=== PATIENT | male | born 1995 | race Caucasian/White ===

== ENCOUNTER 2020-05-20 09:44 | Emergency (ER) | payer OTHER ==
[~2020-05-20] VITALS: Ht 182.9 cm; Wt 76.1 kg
[2020-05-20] MEDS ORDERED: MOTRIN (09:52)
--- NOTE | 2020-05-20 10:28 | REPVR ---
PROCEDURE INFORMATION: Exam: XR Right Hand Exam date and time: 05/20/20 (10:14am) Age: 24 years old Clinical indication: Right hand swelling. Sutures in hand. TECHNIQUE: Imaging protocol: XR Right hand Views: 3 or more views COMPARISON: No relevant prior studies available FINDINGS: Bones/joints: Unremarkable. No acute fracture nor dislocation. Soft tissues: Unremarkable. IMPRESSION: No acute findings. Electronically signed by: Jessica Benavides On 05/20/2020 10:28:21 AM
[2020-05-20] MEDS ORDERED: cefTRIAXone SOD 2 GM in D5W MINI-BAG PLUS 50 ML IV ONE (11:45)
[2020-05-20 12:10] LABS: BASO % 0.2 % (0.0-1.0); EOS # 0.1 10^3/uL (0.0-0.5); EOS % 0.6 % (0.0-3.0); HEMOGLOBIN 16.2 g/dl (13.5-17.5); MEAN CORPUSCULAR HEMOGLOBIN 30.6 pg (27.0-33.0); MEAN CORPUSCULAR HGB CONC 33.8 g/dl (32.0-36.5); MEAN CORPUSCULAR VOLUME 90.7 fl (80.0-96.0); MONO # 0.9 10^3/uL (0.0-0.8); MONO % 7.1 % (0.0-5.0); NEUTROPHILS # 10.7 10^3/uL (1.5-8.5); NEUTROPHILS % 83.7 % (36.0-66.0); PLATELET COUNT, AUTOMATED 287 10^3/uL (150-450); RED BLOOD COUNT 5.29 10^6/uL (4.30-6.10); WHITE BLOOD COUNT 12.8 10^3/uL (4.0-10.0)
[2020-05-20 12:29] LABS: ERYTHROCYTE SEDIMENTATION RATE 2 mm/hr (0-15)
[2020-05-20] MEDS ORDERED: KEFL500C17 PO (13:25)
[2020-05-20 13:37] VITALS: BP 133/65
== END 2020-05-20 13:41 | disposition home or self-care (01) ==
LOC: M ED 09:44
DX: L03.113 Cellulitis of right upper limb (principal); F17.200 Nicotine dependence, unspecified, uncomplicated
CPT/HCPCS: 73130; 80047; 85025; 85652; 86140; 87040; 96365; 99284; J0696

== ENCOUNTER 2021-05-09 11:47 | Emergency (ER) | payer OTHER ==
[~2021-05-09] VITALS: Ht 177.8 cm; Wt 76.2 kg
[~2021-05-09 11:47] MED LIST: KEFL500C17 PO; MOTRIN
[2021-05-09 11:48] VITALS: BP 128/61
[2021-05-09] MEDS ORDERED: LIDOCAINE 1% MDV 20ML VIAL SC ONE (12:40)
== END 2021-05-09 13:51 | disposition home or self-care (01) ==
LOC: M ED 11:47
DX: S63.257A Unspecified dislocation of left little finger, initial encounter (principal); W21.01XA Struck by football, initial encounter; Y92.410 Unspecified street and highway as the place of occurrence of the external cause; Y93.62 Activity, american flag or touch football; Y99.9 Unspecified external cause status

== ENCOUNTER 2022-03-28 17:29 | Emergency (ER) | payer OTHER ==
[~2022-03-28] VITALS: Ht 185.4 cm; Wt 74.5 kg
[2022-03-28 19:51] VITALS: BP 148/79
== END 2022-03-28 19:55 | disposition home or self-care (01) ==
LOC: M ED 17:29
DX: J06.9 Acute upper respiratory infection, unspecified (principal); Z87.891 Personal history of nicotine dependence

== ENCOUNTER 2023-01-24 23:14 | Emergency (ER) | payer OTHER ==
[~2023-01-24] VITALS: Ht 177.8 cm; Wt 82.3 kg
[2023-01-25] MEDS ORDERED: KETOROLAC 60MG 2ML VIAL IM ONE (05:25)
[2023-01-25] MEDS ORDERED: predniSONE 20 MG TAB PO ONE (05:25)
[2023-01-25 07:38] VITALS: BP 123/61
[2023-01-25] MEDS ORDERED: NAPR-837 PO (07:48)
[2023-01-25] MEDS ORDERED: MEDR4PAK PO (07:48)
== END 2023-01-25 08:02 | disposition home or self-care (01) ==
LOC: M ED 23:14
DX: M54.50 Low back pain, unspecified (principal); Y93.B3 Activity, free weights; Y99.1 Military activity; Z79.1 Long term (current) use of non-steroidal anti-inflammatories (NSAID); Z79.899 Other long term (current) drug therapy
CPT/HCPCS: 72110; 72190; 96372; 99283; J1885; J7512

== ENCOUNTER 2023-09-25 23:23 | Emergency (ER) | payer OTHER ==
[~2023-09-25] VITALS: Ht 180.3 cm; Wt 82.5 kg
[~2023-09-25 23:23] MED LIST changes: +MEDR4PAK PO; +NAPR-837 PO
[2023-09-26 00:18] LABS: BASO % 0.2 % (0.0-1.0); EOS # 0.2 10^3/uL (0.0-0.5); EOS % 1.7 % (0.0-3.0); HEMATOCRIT 42.2 % (42.0-52.0); HEMOGLOBIN 15.2 g/dl (13.5-17.5); LYMPH # 2.5 10^3/uL (1.5-5.0); LYMPH % 26.4 % (24.0-44.0); MEAN CORPUSCULAR HEMOGLOBIN 31.1 pg (27.0-33.0); MEAN CORPUSCULAR VOLUME 86.3 fl (80.0-96.0); MONO # 0.8 10^3/uL (0.0-0.8); MONO % 8.5 % (2.0-8.0); NEUTROPHILS # 5.8 10^3/uL (1.5-8.5); PLATELET COUNT, AUTOMATED 271 10^3/uL (150-450); RED BLOOD COUNT 4.89 10^6/uL (4.30-6.10); WHITE BLOOD COUNT 9.3 10^3/uL (4.0-10.0)
[2023-09-26 00:32] LABS: ALBUMIN 4.7 G/DL (3.2-5.2); ALKALINE PHOSPHATASE 68 U/L (46-116); ALT/SGPT 24 U/L (7.0-40); AST/SGOT 21 U/L (<34); BILIRUBIN,DIRECT 0.1 MG/DL (<0.4); BILIRUBIN,TOTAL 0.4 MG/DL (0.3-1.2); BLOOD UREA NITROGEN 12 MG/DL (9-23); CALCIUM LEVEL 9.1 MG/DL (8.5-10.1); CARBON DIOXIDE LEVEL 29 MMOL/L (20-31); CHLORIDE LEVEL 103 MMOL/L (98-107); CREATININE FOR GFR 0.89 MG/DL (0.70-1.30); GLOMERULAR FILTRATION RATE > 60.0 (>60); GLUCOSE, FASTING 94 MG/DL (60-100); POTASSIUM SERUM 3.6 MMOL/L (3.5-5.1); SODIUM LEVEL 139 MMOL/L (136-145); TOTAL PROTEIN 7.4 G/DL (5.7-8.2)
[2023-09-26 05:46] VITALS: BP 136/73; TEMP 99.6; O2SAT 96
== END 2023-09-26 07:30 | disposition left against medical advice (07) ==
LOC: M ED 23:23
DX: Z53.21 Procedure and treatment not carried out due to patient leaving prior to being seen by health care provider (principal)